=== PATIENT | female | born 1945 | race Caucasian/White ===

== ENCOUNTER 2024-06-26 07:47 | Emergency (ER) | payer MEDICARE ==
[2024-06-26 09:00] LABS: #Basophils Less than 0.03 10x3/uL (0.0-0.2); #Eosinophils 0.14 10x3/uL (0.0-0.5); #Monocytes 0.63 10x3/uL (0.0-1.1); #Neutrophils 7.18 10x3/uL (1.5-8.4); %Basophils 0.2 % (0.0-2.0); %Eosinophils 1.5 % (0.0-6.0); %Lymphocytes 13.7 % (18.0-47.0); %Monocytes 6.8 % (0.0-10.0); %Neutrophils 77.5 % (40.0-75.0); Hematocrit 40.7 % (34.9-44.5); Hemoglobin 13.5 g/dL (12.0-15.5); Mean Corpuscular HGB CONC 33.2 g/dL (32.0-36.0); Mean Corpuscular Volume 93.6 fL (81.6-98.3); Mean Platelet Volume 10.6 fL (7.4-10.4); Platelet Count 179 10x3/uL (150-450); RBC Distribution Width 13.2 % (11.5-14.5); Red Blood Cell (RBC) Count 4.35 10x6/uL (3.90-5.03); White Blood Cell (WBC) Count 9.27 10x3/uL (3.5-10.5)
[2024-06-26 09:17] LABS: ALT (SGPT) 16 U/L (Less than 34); AST (SGOT) 21 U/L (11-34); Albumin 3.6 g/dL (3.1-4.5); Alkaline Phosphatase 62 U/L (40-110); Anion Gap 12 mmol/L (10-20); BUN (Urea Nitrogen) 21 mg/dL (9.8-20.1); Bilirubin, Total 1.1 mg/dL (0.3-1.2); Calc. Creatinine Clearance 0 mL/min (70-130); Calcium 9.2 mg/dL (7.8-10.44); Carbon Dioxide 26 mmol/L (23-31); Chloride 110 mmol/L (98-107); Estimated GFR 58; Glucose 108 mg/dL (83-110); Potassium 3.9 mmol/L (3.5-5.1); Protein, Total 5.6 g/dL (5.8-8.1); Sodium 144 mmol/L (136-145)
[2024-06-26 09:23] LABS: Troponin I Less than 0.010 ng/mL (< 0.028)
[2024-06-26] MEDS ORDERED: Iopamidol 370 76% 100 ML VIAL ONE (11:18)
== END 2024-06-26 12:00 | disposition home or self-care (01) ==
LOC: CSHERS 07:47
DX: M25.511 Pain in right shoulder (principal); I10 Essential (primary) hypertension
CPT/HCPCS: 36415; 71045; 71275; 80053; 84484; 85025; 85379; 93005; Q9967

== ENCOUNTER 2025-02-18 14:58 | Observation (INO) | payer OTHER ==
[2025-02-18 15:48] LABS: #Basophils Less than 0.03 10x3/uL (0.0-0.2); #Eosinophils 0.66 10x3/uL (0.0-0.5); #Monocytes 0.53 10x3/uL (0.0-1.1); #Neutrophils 4.47 10x3/uL (1.5-8.4); %Basophils 0.3 % (0.0-2.0); %Eosinophils 9.6 % (0.0-6.0); %Lymphocytes 16.8 % (18.0-47.0); %Monocytes 7.7 % (0.0-10.0); %Neutrophils 65.2 % (40.0-75.0); Hematocrit 41.2 % (34.9-44.5); Hemoglobin 13.3 g/dL (12.0-15.5); Mean Corpuscular Hemoglobin 31.5 pg (27.0-33.0); Mean Corpuscular Volume 97.6 fL (81.6-98.3); Platelet Count 196 10x3/uL (150-450); Red Blood Cell (RBC) Count 4.22 10x6/uL (3.90-5.03); White Blood Cell (WBC) Count 6.86 10x3/uL (3.5-10.5)
[2025-02-18 16:12] LABS: ALT (SGPT) 38 U/L (Less than 34); AST (SGOT) 37 U/L (11-34); Albumin 3.8 g/dL (3.1-4.5); Alkaline Phosphatase 63 U/L (40-110); Anion Gap 13 mmol/L (10-20); BUN (Urea Nitrogen) 16 mg/dL (9.8-20.1); Bilirubin, Total 1.2 mg/dL (0.3-1.2); Calc. Creatinine Clearance 0 mL/min (70-130); Calcium 9.1 mg/dL (7.8-10.44); Carbon Dioxide 29 mmol/L (23-31); Chloride 108 mmol/L (98-107); Globulin 2.2 g/dL (2.4-3.5); Glucose 92 mg/dL (83-110); Potassium 4.3 mmol/L (3.5-5.1); Sodium 146 mmol/L (136-145)
[2025-02-18] MEDS ORDERED: predniSONE 20 MG TAB ONE (16:15)
[2025-02-18 16:18] LABS: Troponin I Less than 0.010 ng/mL (< 0.028)
[2025-02-18] MEDS ORDERED: Magnesium 2 GM/50 ML BAG (IN WATER) ONE (19:24)
[2025-02-18] MEDS ORDERED: cefTRIAXone (ROCEPHIN) 2 GM VIAL ONE (19:27)
[2025-02-18 19:44] LABS: Magnesium 1.7 mg/dL (1.6-2.6)
[2025-02-18] MEDS ORDERED: Senokot S 8.6-50 MG TAB PO PRN (19:46)
[2025-02-18] MEDS ORDERED: Melatonin 3 MG TAB PO PRN (19:46)
[2025-02-18] MEDS ORDERED: Ondansetron PF 4 MG/2 ML Vial IVP PRN (19:46)
[2025-02-18] MEDS ORDERED: Calcium Carbonate 500 MG ChewTAB PO PRN (19:46)
[2025-02-18] MEDS ORDERED: Electrolyte Replacement Protocol 1 EACH FS PRN (20:00)
[2025-02-18 21:23] VITALS: BMI 39.6
[2025-02-18] MEDS: Mometasone 100 MCG/Formoterol 5 MCG 60 PUFF AEROSOL INH SCH (22:04)
[2025-02-18] MEDS: Magnesium 2 GM/50 ML(in water) 2 GM in Premix 1 BAG IVPB SCH (22:09)
[2025-02-18] MEDS: Azithromycin 250 MG TAB PO SCH (22:10)
[2025-02-19 03:47] LABS: #Basophils Less than 0.03 10x3/uL (0.0-0.2); #Eosinophils Less than 0.03 10x3/uL (0.0-0.5); #Monocytes Less than 0.03 10x3/uL (0.0-1.1); #Neutrophils 5.14 10x3/uL (1.5-8.4); %Basophils 0.2 % (0.0-2.0); %Eosinophils 0.0 % (0.0-6.0); %Lymphocytes 8.3 % (18.0-47.0); %Monocytes 0.4 % (0.0-10.0); %Neutrophils 90.6 % (40.0-75.0); Hematocrit 42.0 % (34.9-44.5); Hemoglobin 13.3 g/dL (12.0-15.5); Mean Corpuscular Hemoglobin 30.7 pg (27.0-33.0); Mean Corpuscular Volume 97.0 fL (81.6-98.3); Platelet Count 178 10x3/uL (150-450); Red Blood Cell (RBC) Count 4.33 10x6/uL (3.90-5.03); White Blood Cell (WBC) Count 5.67 10x3/uL (3.5-10.5)
[2025-02-19 04:06] LABS: Anion Gap 18 mmol/L (10-20); BUN (Urea Nitrogen) 16 mg/dL (9.8-20.1); Calc. Creatinine Clearance 70 mL/min (70-130); Calcium 9.1 mg/dL (7.8-10.44); Carbon Dioxide 23 mmol/L (23-31); Chloride 106 mmol/L (98-107); Glucose 149 mg/dL (83-110); Potassium 4.1 mmol/L (3.5-5.1); Sodium 143 mmol/L (136-145)
[2025-02-19] MEDS: Mometasone 100 MCG/Formoterol 5 MCG 60 PUFF AEROSOL INH SCH (07:05)
[2025-02-19] MEDS: Pantoprazole 40 MG DR.TAB PO SCH (09:00)
[2025-02-19] MEDS: Enoxaparin 40 MG (0.4 mL) SYRINGE SC SCH (09:00)
[2025-02-19] MEDS: Guaifenesin DM 100-10/5 ML UDCUP PO PRN (10:33)
[2025-02-19 11:58] VITALS: BP 140/73; TEMP 98.2
[2025-02-19] MEDS: Acetaminophen 325 MG TAB PO PRN (12:20)
[2025-02-19] MEDS ORDERED: Azithromycin 250 MG TAB PO SCH (21:00)
== END 2025-02-19 15:15 | disposition short-term general hospital (02) ==
LOC: CSHERS 14:58 → CSHICU 19:28
PROVIDERS: ADMIT Internal Medicine; ATTEND Internal Medicine
DX: R06.02 Shortness of breath (principal); R06.2 Wheezing; I10 Essential (primary) hypertension; K21.9 Gastro-esophageal reflux disease without esophagitis; E78.5 Hyperlipidemia, unspecified; Z79.899 Other long term (current) drug therapy; Z88.1 Allergy status to other antibiotic agents; Z88.8 Allergy status to other drugs, medicaments and biological substances; Z88.6 Allergy status to analgesic agent
CPT/HCPCS: 71045; 80048; 80053; 83605; 83735; 83880; 84484; 85025 ×2; 87040; 93005; 94640 ×6; 94664 ×2; 94762; 96365; 96375; 99285; J0696; J1650; J2919 ×2; J3475; 36415; 96372; 96376; G0378; J7512